=== PATIENT | female | born 1990 | race Caucasian/White ===

== ENCOUNTER 2018-12-02 19:29 | Emergency (ER) | payer OTHER ==
[~2018-12-02 19:29] MED LIST: ALB6.7R; CETI10CA8 PO; CITA-156; CLON0.5T66; CYC10 PO; ESCI20TA38 PO; FLU20 PO; HYDR25CA13 PO; KET10 PO; LOR5/325; ONDA4TAB PO; ONDA4TAB97; PRED20TA6 PO
[2018-12-02] MEDS ORDERED: VENL100T22 PO (19:43)
[2018-12-02] MEDS ORDERED: RISP0.5T59 PO (19:43)
[2018-12-02] MEDS ORDERED: SUMA100T32 PO (19:43)
[2018-12-02] MEDS ORDERED: LAMO200T45 PO (19:43)
[2018-12-02] MEDS ORDERED: TOPI50TA92 PO (19:43)
--- NOTE | 2018-12-02 20:29 | ER Report ---
History and Physical Time Seen By MD: 20:04 Hx. of Stated Complaint: states recent change in ocd ,medications that has been cuasing suicidal thoughts. states she is not suicidal but would like the thoughts to go away HPI/ROS CHIEF COMPLAINT: Suicidal thoughts HISTORY OF PRESENT ILLNESS: This is a 28-year-old female who presents to the emergency department for suicidal thoughts. Patient is currently being treated for OCD with suicidal thoughts, she has been on the same medication for roughly a year, she's been working with her psychiatrist on adjusting her medications over the last week, her suicidal thoughts began to increase in frequency. Continues to have persistent suicidal thoughts, despite the medication a djustments, she is very anxious, though not actively suicidal, she is concerned she may act, therefore she is requesting help, she does have access to prescription medications, knives, automobiles and alcohol. She is tearful, is accompanied by her S.O. She has no other complaints at this time. No fevers or chills. No nausea or vomiting. No diarrhea. REVIEW OF SYSTEMS: Constitutional: No fever, no chills. Eyes: No discharge. ENT: No sore throat. Cardiovascular: No chest pain, no palpitations. Respiratory: No cough, no shortness of breath. Gastrointestinal: No abdominal pain, no vomiting. Genitourinary: No hematuria. Musculoskeletal: No back pain. Skin: No rashes. Neurological: No headache. Psychological: As above. Allergies: Coded Allergies: latex (Verified Allergy, Unknown, 12/29/14) nickel (Verified Allergy, Unknown, 12/29/14) Home Meds Active Scripts Hydroxyzine Pamoate (HYDROXYZINE PAMOATE) 25 Mg Capsule, 25 MG PO Q6H PRN for ITCHING, #30 CAPSULE Prov:[facility] 12/29/14 Reported Medications Sumatriptan Succinate (IMITREX) 100 Mg Tablet, 100 MG PO ONCE 12/02/18 Risperidone (RISPERIDONE) 0.5 Mg Tablet, 0.5 MG PO BID 12/02/18 Venlafaxine Hcl (VENLAFAXINE HCL) 100 Mg Tablet, 325 MG PO BID 12/02/18 Lamotrigine (LAMOTRIGINE) 200 Mg Tablet, 200 MG PO 12/02/18 Topiramate (TOPIRAMATE) 50 Mg Tablet, 50 MG PO BID 12/02/18 Albuterol Sulfate (PROVENTIL HFA) 6.7 Gm Inh 07/02/13 Cetirizine Hcl (Zyrtec) 10 Mg Capsule, 10 MG PO 06/11/12 Discontinued Reported Medications Escitalopram Oxalate (LEXAPRO) 20 Mg Tablet, 10 MG PO QDAY 12/29/14 Clonazepam (KLONOPIN) 0.5 Mg Tablet, TID 07/02/13 Cyclobenzaprine Hcl (Flexeril) 10 Mg Tab, 10 MG PO 06/11/12 Discontinued Scripts Ondansetron (ZOFRAN ODT) 4 Mg Tab.rapdis, 4 MG PO Q6H, #20 TAB Prov:[facility] 12/29/14 Prednisone (PREDNISONE) 20 Mg Tablet, 20 MG PO BID, #10 TAB Prov:[facility] 12/29/14 Past Medical/Surgical History Patient has a past medical and surgical history of possible MS, asthma, HPV, sciatica, bipolar, OCD, suicidal thoughts, , moist and teeth extraction. Reviewed Nurses Notes: Yes Hx Smoking: Yes Smoking Status: Current: Every Day Smoker Hx Substance Use Disorder: No Hx Alcohol Use: Yes (RARE) Constitutional Vital Sign - Last 24 Hours 12/02/18 19:37 Temp 99.0 O2 Delivery Room Air Physical Exam General Appearance: The patient is alert, has no immediate need for airway protection and no signs of toxicity. Eyes: Pupils equal and round no pallor or injection. ENT, Mouth: Mucous membranes are moist. Respiratory: There are no retractions, lungs are clear to auscultation. Cardiovascular: Regular rate and rhythm. Gastrointestinal: Abdomen is soft and non tender, no masses, bowel sounds normal. Skin: Warm and dry, no rashes. Musculoskeletal: Neck is supple non tender. Extremities are nontender, nonswollen and have full range of motion. Psychological: Patient is sitting up in the gurney, rocking back and forth, she is tearful, very rapid speech, making good eye contact, very forthcoming with her concerns and her thoughts. She is wringing her hands. DIFFERENTIAL DIAGNOSIS: After history and physical exam differential diagnosis was considered for depression, suicidal thoughts. Medical Decision Making Data Points Result Diagram: 12/02/18194812/02/181948 Laboratory Hematology Test 12/02/18 19:31 12/02/18 19:49 Urine Color Straw Urine Clarity Clear Urine pH 7.0 pH (4.8-9.5) Urine Specific [place] 1.003 Urine Protein Negative mg/dL (NEGATIVE) Urine Glucose (UA) Negative mg/dL (NEGATIVE) Urine Ketones Negative mg/dL (NEGATIVE) Urine Blood Negative (NEGATIVE) Urine Nitrite Negative (NEGATIVE) Urine Bilirubin Negative (NEGATIVE) Urine Urobilinogen Negative mg/dL (0.2-1.9) Urine Leukocyte Esterase Negative (NEGATIVE) Urine RBC 1 /HPF (0-2/HPF) Urine WBC 1 /HPF (0-5/HPF) Urine Squamous Epithelial Cells Many /LPF (</=FEW) Urine Bacteria Many /HPF (NONE-FEW) Urine Mucus None /HPF (NONE-FEW) Urine HCG, Qualitative Negative (NEGATIVE) Urine Opiates Screen Negative Urine Barbiturates Screen Negative Ur Tricyclic Antidepressants Screen Negative Urine Phencyclidine Screen Negative Urine Amphetamines Screen Negative Urine Benzodiazepines Screen Negative Urine Cocaine Screen Negative Urine Cannabinoids Screen Negative Red Blood Count 4.58 M/uL (4.17-5.56) Mean Corpuscular Volume 89.0 fL (80.0-96.0) Mean Corpuscular Hemoglobin 31.3 pg (26.0-33.0) Mean Corpuscular Hemoglobin Concent 35.1 g/dL (32.0-36.0) Red Cell Distribution Width 13.0 % (11.5-14.5) Mean Platelet Volume 7.9 fL (7.2-11.1) Neutrophils (%) (Auto) 60.6 % (39.4-72.5) Lymphocytes (%) (Auto) 27.4 % (17.6-49.6) Monocytes (%) (Auto) 6.3 % (4.1-12.4) Eosinophils (%) (Auto) 4.9 % (0.4-6.7) Basophils (%) (Auto) 0.8 % (0.3-1.4) Nucleated RBC Relative Count (auto) 0.1 /100WBC Neutrophils # (Auto) 3.9 K/uL (2.0-7.4) Lymphocytes # (Auto) 1.8 K/uL (1.3-3.6) Monocytes # (Auto) 0.4 K/uL (0.3-1.0) Eosinophils # (Auto) 0.3 K/uL (0.0-0.5) Basophils # (Auto) 0.1 K/uL (0.0-0.1) Nucleated RBC Absolute Count (auto) 0.00 K/uL Sodium Level 141 mmol/L (137-145) Potassium Level 3.7 mmol/L (3.5-5.0) Chloride Level 106 mmol/L (98-107) Carbon Dioxide Level 20 mmol/L (22-31) Blood Urea Nitrogen 7 mg/dl (7-18) Creatinine 0.80 mg/dl (0.52-1.04) Glomerular Filtration Rate Calc > 60.0 Random Glucose 92 mg/dl (75-110) Calcium Level 10.0 mg/dl (8.4-10.2) Magnesium Level 1.9 mg/dl (1.7-2.2) Total Bilirubin 0.3 mg/dl (0.2-1.3) Aspartate Amino Transf (AST/SGOT) 33 U/L (0-35) Alanine Aminotransferase (ALT/SGPT) 38 U/L (0-56) Alkaline Phosphatase 105 U/L (0-126) Total Protein 8.1 g/dl (6.3-8.2) Albumin 4.9 g/dl (3.5-5.0) Salicylates Level < 10 mg/L Salicylate Last Dose Date unk Acetaminophen Level < 10 ug/ml Serum Alcohol < 10 mg/dl Chemistry Test 12/02/18 19:31 12/02/18 19:49 Urine Color Straw Urine Clarity Clear Urine pH 7.0 pH (4.8-9.5) Urine Specific [place] 1.003 Urine Protein Negative mg/dL (NEGATIVE) Urine Glucose (UA) Negative mg/dL (NEGATIVE) Urine Ketones Negative mg/dL (NEGATIVE) Urine Blood Negative (NEGATIVE) Urine Nitrite Negative (NEGATIVE) Urine Bilirubin Negative (NEGATIVE) Urine Urobilinogen Negative mg/dL (0.2-1.9) Urine Leukocyte Esterase Negative (NEGATIVE) Urine RBC 1 /HPF (0-2/HPF) Urine WBC 1 /HPF (0-5/HPF) Urine Squamous Epithelial Cells Many /LPF (</=FEW) Urine Bacteria Many /HPF (NONE-FEW) Urine Mucus None /HPF (NONE-FEW) Urine HCG, Qualitative Negative (NEGATIVE) Urine Opiates Screen Negative Urine Barbiturates Screen Negative Ur Tricyclic Antidepressants Screen Negative Urine Phencyclidine Screen Negative Urine Amphetamines Screen Negative Urine Benzodiazepines Screen Negative Urine Cocaine Screen Negative Urine Cannabinoids Screen Negative White Blood Count 6.5 k/uL (4.5-11.0) Red Blood Count 4.58 M/uL (4.17-5.56) Hemoglobin 14.3 g/dL (12.0-16.0) Hematocrit 40.8 % (34.0-47.0) Mean Corpuscular Volume 89.0 fL (80.0-96.0) Mean Corpuscular Hemoglobin 31.3 pg (26.0-33.0) Mean Corpuscular Hemoglobin Concent 35.1 g/dL (32.0-36.0) Red Cell Distribution Width 13.0 % (11.5-14.5) Platelet Count 296 K/uL (150-450) Mean Platelet Volume 7.9 fL (7.2-11.1) Neutrophils (%) (Auto) 60.6 % (39.4-72.5) Lymphocytes (%) (Auto) 27.4 % (17.6-49.6) Monocytes (%) (Auto) 6.3 % (4.1-12.4) Eosinophils (%) (Auto) 4.9 % (0.4-6.7) Basophils (%) (Auto) 0.8 % (0.3-1.4) Nucleated RBC Relative Count (auto) 0.1 /100WBC Neutrophils # (Auto) 3.9 K/uL (2.0-7.4) Lymphocytes # (Auto) 1.8 K/uL (1.3-3.6) Monocytes # (Auto) 0.4 K/uL (0.3-1.0) Eosinophils # (Auto) 0.3 K/uL (0.0-0.5) Basophils # (Auto) 0.1 K/uL (0.0-0.1) Nucleated RBC Absolute Count (auto) 0.00 K/uL Glomerular Filtration Rate Calc > 60.0 Calcium Level 10.0 mg/dl (8.4-10.2) Magnesium Level 1.9 mg/dl (1.7-2.2) Total Bilirubin 0.3 mg/dl (0.2-1.3) Aspartate Amino Transf (AST/SGOT) 33 U/L (0-35) Alanine Aminotransferase (ALT/SGPT) 38 U/L (0-56) Alkaline Phosphatase 105 U/L (0-126) Total Protein 8.1 g/dl (6.3-8.2) Albumin 4.9 g/dl (3.5-5.0) Salicylates Level < 10 mg/L Salicylate Last Dose Date unk Acetaminophen Level < 10 ug/ml Serum Alcohol < 10 mg/dl Toxicology Test 12/02/18 19:31 12/02/18 19:49 Urine Opiates Screen Negative Urine Barbiturates Screen Negative Ur Tricyclic Antidepressants Screen Negative Urine Phencyclidine Screen Negative Urine Amphetamines Screen Negative Urine Benzodiazepines Screen Negative Urine Cocaine Screen Negative Urine Cannabinoids Screen Negative Salicylates Level < 10 mg/L Salicylate Last Dose Date unk Acetaminophen Level < 10 ug/ml Serum Alcohol < 10 mg/dl Urinalysis Test 12/02/18 19:31 Urine Color Straw Urine Clarity Clear Urine pH 7.0 pH (4.8-9.5) Urine Specific [place] 1.003 Urine Protein Negative mg/dL (NEGATIVE) Urine Glucose (UA) Negative mg/dL (NEGATIVE) Urine Ketones Negative mg/dL (NEGATIVE) Urine Blood Negative (NEGATIVE) Urine Nitrite Negative (NEGATIVE) Urine Bilirubin Negative (NEGATIVE) Urine Urobilinogen Negative mg/dL (0.2-1.9) Urine Leukocyte Esterase Negative (NEGATIVE) Urine RBC 1 /HPF (0-2/HPF) Urine WBC 1 /HPF (0-5/HPF) Urine Squamous Epithelial Cells Many /LPF (</=FEW) Urine Bacteria Many /HPF (NONE-FEW) Urine Mucus None /HPF (NONE-FEW) Urine HCG, Qualitative Negative (NEGATIVE) ED Course/Re-evaluation ED Course The patient was admitted to room. A history and physical obtained. Differential diagnoses were considered. A CBC, CMP psych panel were obtained. Laboratory studies unremarkable, negative tox screen, negative UA. I did speak with Dr. Naomie gutierrez the psychiatrist on-call, he's accepted the patient in the behavioral health unit. Patient was seen and evaluated by the behavioral health tech as well. Patient remained cooperative while in the emergency department. She did sign in voluntarily. 12/02/2018 9:01:38 pm and his peak with Dr. Wilson of the psychiatrist on-call, his accepted the patient in the behavioral health unit. Decision to Disposition Date: Dec 02, 2018 Decision to Disposition Time: 21:01 Depart Departure Latest Vital Signs Vital Signs Date Time Temp Pulse Resp B/P (MAP) Pulse Ox O2 Delivery O2 Flow Rate FiO2 12/02/18 19:37 99.0 Room Air Impression: Primary Impression: Suicidal thoughts Condition: Improved Disposition: XFER TO [facility]KE [facility]-BC Dec 02, 2018 20:29
[2018-12-02 20:37] LABS: PLATELET COUNT, AUTOMATED 296 K/uL (150-450)
[2018-12-03] MEDS ORDERED: VENL75CA4 PO (11:48)
== END 2018-12-02 21:50 ==
LOC: ER 20:03
DX: R45.851 Suicidal ideations (principal)
CPT/HCPCS: 36415; 80305; 80320; 80329; 81001; 81025; 82040; 82247; 82310; 82374; 82435; 82565; 82947; 83735; 84075; 84132; 84155; 84295; 84443; 84450; 84460; 84520; 85025; 99284

== ENCOUNTER 2018-12-02 21:18 | Inpatient (IN) | payer OTHER ==
[~2018-12-02] VITALS: Ht 160 cm; Wt 77.1 kg
[~2018-12-02 21:18] MED LIST changes: +LAMO200T45 PO; +RISP0.5T59 PO; +SUMA100T32 PO; +TOPI50TA92 PO; +VENL100T22 PO
[2018-12-02] MEDS ORDERED: MAG HYD/AL HYD/SIMETH 30ML UDC PO PRN (21:25)
[2018-12-02 21:51] VITALS: BP 126/83
[2018-12-02] MEDS ORDERED: CETIRIZINE HCL 10 MG TAB PO SCH (22:05)
[2018-12-02] MEDS ORDERED: TOPIRAMATE 100 MG TAB PO SCH (22:05)
[2018-12-02] MEDS ORDERED: risperiDONE 0.25 MG TAB PO SCH (22:05)
[2018-12-02] MEDS: ACETAMINOPHEN 325 MG TAB PO PRN (22:09)
[2018-12-02] MEDS ORDERED: risperiDONE 1 MG TAB ONE (22:16)
[2018-12-03 05:26] VITALS: BP 123/92
[2018-12-03] MEDS: MULTIVITAMINS TAB PO SCH (08:23)
[2018-12-03] MEDS ORDERED: VENLAFAXINE XR 75 MG CAPCR PO SCH (10:30)
[2018-12-03 11:03] VITALS: BP 116/77
[2018-12-03] MEDS ORDERED: VENL75CA4 PO (11:48)
[2018-12-03] MEDS: VENLAFAXINE XR 75 MG CAPCR PO SCH (12:08)
[2018-12-03] MEDS: lamoTRIgine 100 MG TAB PO SCH ×2 (12:08→21:10)
[2018-12-03] MEDS: ACETAMINOPHEN 325 MG TAB PO PRN (12:22)
[2018-12-03] MEDS: TOPIRAMATE 100 MG TAB PO SCH ×2 (13:09→21:11)
[2018-12-03] MEDS ORDERED: CETIRIZINE HCL 10 MG TAB PO SCH (21:00)
[2018-12-04 05:47] VITALS: BP 119/82
[2018-12-04] MEDS: lamoTRIgine 100 MG TAB PO SCH (07:57)
[2018-12-04] MEDS: MULTIVITAMINS TAB PO SCH (07:57)
[2018-12-04] MEDS: VENLAFAXINE XR 75 MG CAPCR PO SCH (07:58)
[2018-12-04] MEDS: TOPIRAMATE 100 MG TAB PO SCH (07:58)
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
[2018-12-04 11:00] VITALS: BP 104/62
[2018-12-04] MEDS ORDERED: MULT-859 PO (11:12)
== END 2018-12-04 11:20 | disposition home or self-care (01) | DRG 880 ==
LOC: BHS 21:18
PROVIDERS: ADMIT Psychiatry & Neurology Psychiatry; ATTEND Psychiatry & Neurology Psychiatry
DX: F41.8 Other specified anxiety disorders (principal); R45.851 Suicidal ideations; M79.7 Fibromyalgia; F42.9 Obsessive-compulsive disorder, unspecified; Z81.8 Family history of other mental and behavioral disorders; Z81.1 Family history of alcohol abuse and dependence; Z91.040 Latex allergy status